=== PATIENT | male | born 2005 | race Caucasian/White ===

== ENCOUNTER 2025-07-29 03:54 | Emergency (ER) | payer OTHER, SELFPAY ==
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
--- OUTSIDE RECORDS SUMMARY | 2025-07-29 09:06 | XMS_ITS | Patient Health Record ---
Author Organization [facility] Address [address] [place] [address] Care Team Providers Care Senior Fund Accountant Name Role Phone Chantell ONEIL, Rhianna Primary Care Provider Alexis Vaughn Unavailable Reason For Referral No Information Medications Medication SIG (Take, Route, Frequency, Duration) Notes Start Date End Date Status SEROquel *Please review a nd pick correct strength-formulation from [employer] options. If intended option is not shown, discontinue and re-order from Quick Search* Active Problems Problem Type SNOMED Code ICD Code Onset Dates Problem Status W/U Status Risk Notes Problem Chronic ethmoidal sinusitis (82664676) Chronic ethmoidal sinusitis (473.2) Active confirmed Problem Chronic sphenoidal sinusitis (66812720) Chronic sphenoidal sinusitis (473.3) Active confirmed Problem Allergic rhinitis (61121899) Allergic rhinitis due to unspecified cause (477.9) Active confirmed Plan Of Treatment No Information Insurance Providers Payer Name Payer Address Payer Phone Subscriber Number Group Number Insured Name Patient Relationship to Insured Coverage Start Date Coverage End Date [employer] [address] [place] [address] [phone] [id number] Cristine Galeana Natural Child - Insured has Financial Responsibility [facility] [address] [place] [phone] [id number] Emmanuel Galeana Self - patient is the insured Medical (General) History Medical History History ICD Code Autistic
--- OUTSIDE RECORDS SUMMARY | 2025-07-29 09:06 | XMS_ITS | Encounter Summary ---
Author Organization [facility] Address [address] [place] [address] Phone Care Team Providers Care Family Psychologist Name Role Phone Rhianna Abdul MD Primary Care Provider Encounter Details Date Type Department Care Team (Late st Contact Info) Description 05/09/2018 Procedure Pass [facility] [address] [place] [address] Social History Tobacco Use Types Packs/Day Years Used Date Smoking Tobacco: Never Smokeless Tobacco: Never Sex and Gender Information Value Date Recorded Sex Assigned at Not on file Legal Sex Male 3:57 PM EDT Gender Identity Not on file Sexual Orientation Not on file documented as of this encounter Plan of Treatment Not on file documented as of this encounter Visit Diagnoses Not on filedocumented in this encounter Additional Health Concerns Assessment Noted Time PHQ-2 Depression Total Score: 0 05/09/20 18 2:54 PM EDT documented as of this encounter Care Teams Family Psychologist Relationship Specialty Start Date End Date Rhianna Abdul MD [address] [place] [address] PCP - General Pediatrics 04/04/18 documented as of this encounter Additional Source Comments The information contained in this document represents components of the legal health record. It is not the complete legal health record.[facility]
--- OUTSIDE RECORDS SUMMARY | 2025-07-29 09:06 | XMS_ITS | Clinical Summary ---
Author Organization [facility] Address [address] [place] [address] Care Team Providers Care Oracle Wms Consultant Name Role Phone Rhianna Abdul MD Primary Care Provider Allergies No known active allergies Medications * This document contains information received from the source organization and may not represent a complete record from that organization. ARIPiprazole (ABILIFY) 15 mg tablet Take 1 tablet (15 mg total) by mouth once a day. 14 tablet 1 5 Active cloNIDine (CATAPRES) 0.1 mg tablet Take 1 tablet (0.1 mg total) by mouth 3 times a day as needed (anxiety). 21 tablet 5 Active hydrOXYzine HCL (ATARAX) 50 mg tablet Take 1 tablet (50 mg total) by mouth 3 times a day as needed for anxiety. 28 tablet 5 Active lamoTRIgine (LaMICtal) 100 mg tablet Take 2 tablets (200 mg total) by mouth once a day AND 0.5 tablets (50 mg total) every night. Do all this for 28 days. 35 tablet 1 5 Active melatonin 3 mg tablet Take 1 tablet (3 mg total) by mouth nightly as needed for sleep. 14 tablet 5 Active sertraline (ZOLOFT) 100 mg tablet Take 2 tablets (200 mg total) by mouth once a day. 28 tablet 1 5 Active LORazepam (ATIVAN) 0.5 mg tablet Take 1 tablet (0.5 mg total) by mouth daily as needed (severe anxiety). 14 tablet 1 5 Active Additional Information Patient not taking.Reported on 02/12/2025 prazosin (MINIPRESS) 2 mg capsule SMARTSI Capsule(s) By Mouth Every Night Active spironolactone (ALDACTONE) 50 mg tablet Take 1 tablet (50 mg total) by mouth once a day. 90 tablet 1 5 Active Active Problems Problem Noted Date Diagnosed Date Moderate episode of recurrent major depressive d isorder 09/25/2024 Social anxiety disorder 09/25/2024 Anxiety 08/11/2024 Assessment & Plan (09/17/2024 2:34 PM EST): Excessive worrying: reports Domains - e verything, the future, what's going to happen Difficulty controlling worry: reports Restlessness, feeling keyed up or on edge: reports Easily fatigued: reports Difficulty concentrating: denies Irritability: reports Muscle tension: reports Sleep disturbance: reports (sleeping too much and trouble sleeping) 09/07: increase Abilify to 15 mg daily 09/17: Family mtg 09/20 Hypersexuality 05/02/2024 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 presentation is consistent with previously diagnosed pedophilic disorder and compulsive sexual behaviors. 08/13: re- started Provera 100 mg daily- for sexualized thoughts/behaviors. Assess for response/side effects plan to increase dose as tolerated- transition to depo- provera injection per pt. Request if tolerated 08/16: Provera dose increase to 200 mg daily as of 08/17 08/26: Provera dose increased to 300 mg daily- plan to transition to Depo-Provera injection per pt. Request if tolerated 09/02: Start Depo-Provera injection 400 mg IM weekly x 2-3 weeks then monthly as tolerated, dose can be increased up to 600 mg. 09/07: re-start oral Provera 100 mg daily until 09/11 then decrease dose to 50 mg x5 days then d/c and increase Abilify to 15 mg daily 09/09: Next dose Depo-Provera injection increased to 500 mg IM weekly on 09/10 09/11: Taper off Oral Provera, last dose of 25 mg on 09/16 Next Dose Depo-Provera injection 500 mg IM weekly due on 09/17 09/17: Received 3rd Depo-Provera injection 500 mg IM weekly today 09/17- next dose will be in 2 weeks on 10/01/24 Anxiety disorder, unspecified type 04/30/2024 Episodic mood disorder 11/05/2014 Akathisia 08/07/2014 Autistic disorder 08/01/2014 Anxiety disorder 08/01/2014 Difficulties In Speech 05/29/2009 Constipation 05/30/2006 Development disorder, mixed 05/30/2006 Acute mucoid otitis media 05/19/2006 Resolved Problems Problem Noted Date Diagnosed Date Resolved Date Recurrent major depressive d isorder, in remission 03/28/2024 09/25/2024 Assessment & Plan (09/17/2024 2:22 PM EST): The patient's history and presentation is consistent with decompensation of major depressive disorder recurrent severe. Symptoms are likely exacerbated by increased psychosocial stressors (loneliness, lack of day structure). Pt reports multiple neurovegetative symptoms. Presents as help seeking. Denies current plan or intent of SI. The patient will likely benefit from assessment of pharmacological and therapeutic interventions along with review of outpatient services, and engagement in milieu environment. -Patient currently presents as able to safety plan on the unit reporting desire to start medications to obtain stability and help with symptoms leading to admission 09/07: Increase Abilify to 15 mg daily 09/13: Increase Abilify to 20 mg daily 09/17: Decrease Abilify to 15 mg daily, Add Lamictal 50 mg at bedtime, and Ativan 0.5 mg daily PRN severe anxiety Assessment & Plan (04/02/2024 3:40 PM EDT): Mr. Emmanuel Galeana is a 19-year-old male with a non-significant past medical history and a past psychiatric history of autism spectrum disorder, anxiety, depression, and ADHD. He was admitted to the [facility] adult psychiatric unit on a conditional voluntary status (section 10 & 11) for worsening depression and suicidal thoughts with plan to cut his wrists. While hospitalized, Mr. Galeana initially endorsed depressed mood and suicidal thoughts. He was continued on his outpatient regimen of Lamictal and started on lexapro for mood and anxiety. He notes improvement in his mood and has been denying suicidal thoughts. He signed a 3-day notice expiring on 04/05. Plan (changes in bold): Psychiatric medications: ----Continue Lexapro 10 mg daily Labs/Consults: ----medical consult ordered on 03/29 due to elevated LFTs Disposition: ----Appreciate assistance with referrals and care coordination Tourette syndrome 08/01/2014 09/25/2024 Encounters Date Type Department Care Team Description 05/19/2025 myChart Message [facility] [address] [place] [address] Mychart, Generic Provider New Patient Appt 06/1005/02/2025 Telephone [facility] [address] [place] [address] Php Wordpress Developer: Sadi Hoffman MD 04/29/2025 Telephone [facility] [address] [place] [address] Php Wordpress Developer: Sadi Hoffman MD DEPO-PROVERA APPROVAL from Last 3 Months Immunizations Immunization Administration Dates Next Due Human Papillomavirus 9-Valent Vaccine 04/23/2019 ,11/19/2018 INFLUENZA, SPLIT VIRUS, TRIVALENT, PF 05/02/2024 (Deferred: Patient Refused) Influenza, Injectable, Quadr ivalent, Preservative Free 07/21/2020 Meningococcal Polysaccharide (Groups A, C, Y and W-135) Diphtheria Toxoid Conjugate Vaccine (MCV4P) 07/21/2020 Tetanus Toxoid, Reduced Diph theria Toxoid, and Acellular Pertussis Vaccine, Adsorbed 09/07/2021 Family History Medical History Relation Name Comments Other Cousin Schizophrenia Cousin Suicide Attempts Cousin No Known Problems Father Schizophrenia Father's Brother Anxiety disorder Mother Depression Mother Other Mother Family history of No pertinent family history No Known Problems Mother's Sister Relation Name Status Comments Cousin Father Alive Father's Brother Alive Mother Alive Mother's Sister Alive Social History Tobacco Use Types Packs/Day Years Used Date Smoking Tobacco: Never Passive Smoke Exposure: Never Smokeless Tobacco: Never Tobacco Cessation:Counseling Given: Not Answered Alcohol Use Standard Drinks/Week Comments Not Currently 0 (1 standard drink = 0.6 oz pur e alcohol) [facility] Utilities Answer Date Recorded In the past 12 months has th e electric, gas, oil, or water company threatened to shut off services in your home? No 09/25/2024 Hunger Vital Sign Answer Date Recorded Within the past 12 months, y ou worried that your food would run out before you got the money to buy more. Never true 09/25/19 25 Within the past 12 months, t he food you bought just didn't last and you didn't have money to get more. Never true 09/25/2024 Transportation Answer Date Recorded In the past 12 months, has l ack of reliable transportation kept you from medical appointments, meetings, work or from getting things needed for daily living? Yes 09/25/2024 Housing Answer Date Recorded Housing Risk Low 2 09/25/2024 Housing Risk Medium Not on file 09/25/2024 Housing Risk High Not on file 09/25/2024 What is your living situation today? [facility] 09/25/2024 Sex and Gender Information Value Date Recorded Sex Assigned at Male 03/01/2024 3:15 PM EDT Legal Sex Male 3:48 AM EDT Gender Identity Male 03/14/2025 11:51 AM EDT Sexual Orientation Bisexual 03/14/2025 11 :51 AM EDT Last Filed Vital Signs Vital Sign Reading Time Taken Comments Blood Pressure 104/64 03/14/2025 1:42 PM EDT Pulse 69 03/14/2025 1:42 PM EDT Temperature 36.7 C (98.1 F) 01/13/2025 4:36 PM EDT Respiratory Rate 18 01/14/2025 4:49 AM EDT Oxygen Saturation 99% 01/13/2025 4:36 PM EDT Inhaled Oxygen Concentration - - Weight 80.3 kg (177 lb 0.5 oz) 02/12/2025 8:13 A M EDT Height 193 cm (6' 4 ) 02/12/2025 8:13 AM EDT Body Mass Index 21.55 02/12/2025 8:13 AM EDT Plan of Treatment Upcoming Encounters Date Type Department Care Team (Late st Contact Info) Description 08/04/2025 3:30 PM EST Office Visit [facility] [address] [place] [address] Nitza Hill MD [address] [facility] [place] [address] Health Maintenance Due Date Last Done Comments HIV Screening 2003 Varicella Vaccines (1 of 2 - 13+ 2-dose series) 02/14/2016 HPV Vaccines (3 - Male 3-dose series) 07/16/2019 04/23/2019, 11/19/2018 Hepatitis B Vaccines (1 of 3 - 19+ 3-dose series) 2022 Alcohol/Substance Use Screening 07/31/2024 Depression Screening and Follow-Up 07/31/2024 Influenza Vaccine (#1) 2025 07/21/2020 COVID-19 Vaccine ( - season) 2025 Social Drivers of Health Annual Screening 09/25/2025 09/25/2024 Basic Metabolic Panel 01/13/2026 01/13/2025 , 08/10/2024, 05/04/2024, Additional history exists DTaP,Tdap,and Td Vaccines (2 - Td or Tdap) 09/07/2031 09/07/2021 Meningococcal Vaccine Completed 07/21/2020 Hepatitis C Screening Completed 03/30/2024 Pneumococcal Vaccine: Pediatric (0-5 Years) and At-Risk Patients (6-50 Years) Aged Out No longer eligible based on patient's age to complete this topic Procedures * Due to [place] law, this organization might not be sharing negative HIV tests. Procedure Name Priority Date/Time Associated Diagnosis Comments COMPREHENSIVE METABOLIC PANEL STAT 01/13/2025 5:25 PM EDT HEPATITIS PANEL, ACUTE STAT 1:35 PM EDT from Last 3 Months or Most Recently Relevant to Health Maintenance Results * Due to [place] law, this organization might not be sharing negative HIV tests. * (ABNORMAL) Comprehensive Metabolic Panel (01/13/2025 5:25 PM EDT) NA 137 136 - 145 mmol/L 01/13/2025 5:53 PM EDT [facility] K 3.7 3.5 - 5.1 mmol/L 01/13/2025 5:53 PM EDT [facility] Cl 104 98 - 109 mmol/L 01/13/2025 5:53 PM EDT [facility] CO2 17(L) 22 - 32 mmol/L 01/13/2025 5:53 PM EDT [facility] Anion Gap 20 >=0 01/13/2025 5:53 PM EDT [facility] Glucose 117(H) 60 - 99 mg/dL 01/13/2025 5:53 PM EDT [facility] Creatinine 0.85 0.50 - 1.12 mg/dL 01/13/2025 5:53 PM EDT [facility] Calcium 9.7 8.4 - 10.4 mg/dL 01/13/2025 5:53 PM EDT [facility] Total Protein 7.3 6.6 - 8.7 g/dL 01/13/2025 5:53 PM EDT [facility] Albumin 4.7 3.5 - 5.0 g/dL 01/13/2025 5:53 PM EDT [facility] Bilirubin, Total 0.5 0.2 - 1.2 mg/dL 01/13/2025 5:53 PM EDT [facility] Alkaline Phosphatase 61 30 - 200 U/L 01/13/2025 5:53 PM EDT [facility] AST 23 0 - 40 U/L 01/13/2025 5:53 PM EDT [facility] ALT 17 <=41 U/L 01/13/2025 5:53 PM EDT [facility] BUN 11 6 - 20 mg/dL 01/13/2025 5:53 PM EDT [facility] eGFR >90 >=60 mL/min/1. 73m2 01/13/2025 5:53 PM EDT [facility] Comment:The estimated glomer ular filtration rate (eGFR) is calculated using a new formula developed by the NKF-ASN task force to eliminate race-based correction factors. The new formula uses serum/plasma creatinine, age, and gender to determine eGFR. A value below 60mls/min might indicate kidney disease and will be flagged. For additional information, see Christine et al, Am J Kidney Dis. 2021;79(2):268- 288, A Unifying Approach for GFR estimation: Recommendations of the NKF-ASN Task Force on Reassessing the Inclusion of Race in Diagnosing Kidney Disease . Globulin, Total 2.6 2.1 - 4.2 g/dL 01/13/2025 5:53 PM EDT [facility] A/G Ratio 1.8 1.5 - 3.0 01/13/2025 5:53 PM EDT [facility] Blood Structure of peripheral vein / Unknown Venipuncture / Unknown 01/13/2025 5:25 PM EDT 01/13/2025 5:32 PM EDT us Rajesh Ramirez MD LAB BLOOD ORDERABLES Final Res ult [facility] [address] [place] [phone], * Hepatitis panel, acute (03/30/2024 1:35 PM EDT) Hepatitis A IgM Antibody Interpretation Nonreactive Nonreactive 04/01/2024 10:13 AM EDT [facility] Hepatitis B Core IgM Antibody Interpretation Nonreactive Nonreactive 04/01/2024 10:13 AM EDT [facility] Hepatitis B Surface Antigen Interpretation Non-Reactive Non-Reactive 04/01/2024 10:13 AM EDT [facility] Hepatitis C Antibody Interpretation Nonreactive Nonreactive 04/01/2024 10:13 AM EDT [facility] Blood Structure of peripheral vein / Unknown Venipuncture / Unknown 03/30/2024 1:35 PM EDT 03/30/2024 1:35 PM EDT us Adriana Tineo NP LAB BLOOD ORDERABLES Sandy sulema Result [facility] [address] [place] [address], [place] [phone] from Last 3 Months or Most Recently Relevant to Health Maintenance Insurance [facility] [employer] Advance Directives * Presumed Full Code (Latest Code Status on File) Date Activated Date Inactivated Comments 08/11/2024 3:04 AM 09/09/2024 5:15 PM * Full Code Date Activated Date Inactivated Comments 04/30/2024 4:46 PM 06/05/2024 4:45 PM * Full Code Date Activated Date Inactivated Comments 03/28/2024 10:27 AM 04/04/2024 4:15 PM Care Teams Oracle Wms Consultant Relationship Specialty Start Date End Date Rhianna Abdul MD [address] [place] [address] PCP - General 02/16/17
--- OUTSIDE RECORDS SUMMARY | 2025-07-29 09:06 | XMS_ITS | Encounter Summary ---
Author Organization [facility] Address [address] [place] [address] Phone Care Team Providers Care Account Development Associate Name Role Phone Rhianna Abdul MD Primary Care Provider Encounter Details Date Type Department Care Team (Late st Contact Info) Description 05/09/2018 Procedure Pass [facility] [address] [place] [address] Social History Tobacco Use Types Packs/Day Years [...] documented as of this encounter Care Teams Account Development Associate Relationship Specialty Start Date End Date Rhianna Abdul MD [address] [place] [address] PCP - General Pediatrics 04/04/18 documented as of this encounter Additional Source Comments The information contained in this document represents components of the legal health record. It is not the complete legal health record.[facility]
--- OUTSIDE RECORDS SUMMARY | 2025-07-29 09:06 | XMS_ITS | Clinical Summary ---
Author Organization [facility] Address [address] [facility] [address] [place] [phone] Phone Care Team Providers Care Manual Control Auger Press Operator Name Role Phone Rhianna Abdul MD Primary Care Provider [phone] Allergies Active Allergy Reactions Criticality Noted Date Comments Pollen Extracts 05/09/2018 Medications desmopressin (DDAVP) 0.1 MG tabletIndication s:3 tabs daily Take 0.1 mg by mouth daily. Indications : 3 tabs daily Active Social History Tobacco Use Types Packs/Day Years Used Date Smoking Tobacco: Never Smokeless Tobacco: Never Education Answer Date Recorded Are you interested in more education? Not on wayne e 11/25/2022 Are you concerned about learning? Not on file 11/25/2022 No 11/25/2022 No 11/25/2022 Digital Access Answer Date Recorded No 12/24/2022 No 12/24/2022 No 12/24/2022 Reliable internet access at home? Not on file 12/24/2022 Device with a working camera? Not on file Sex and Gender Information Value Date Recorded Sex Assigned at Not on file Legal Sex Male 3:57 PM EDT Gender Identity Not on file Sexual Orientation Not on file Last Filed Vital Signs Vital Sign Reading Time Taken Comments Blood Pressure 96/51 08/31/2018 12:53 PM EST Pulse 65 08/31/2018 12:53 PM EST Temperature - - Respiratory Rate - - Oxygen Saturation 100% 08/31/2018 12:53 PM EST Inhaled Oxygen Concentration - - Weight 59.1 kg (130 lb 6.4 oz) 08/31/2018 12:53 PM EST Height - - Body Mass Index - - Plan of Treatment Health Maintenance Due Date Last Done Comments Adult Td,Tdap Booster 2003 SMOKING Hx and SMOKELESS TOBACCO SCREENING 02/14/2016 MENINGOCOCCAL VACCINES (B) ( 1 of 2 - Standard) 2019 DEPRESSION SCREENING 05/09/2019 05/09/2018 HPV VACCINES (3 - Male 3-dos e series) 07/16/2019 04/23/2019, 11/19/2018 HEPATITIS C SCREENING 2021 HIV ONE-TIME SCREENING (18-6 5 YEARS) 2021 INFLUENZA VACCINE (#1) 2025 07/21/2020 COVID-19 VACCINE (1 - 2024-2 6 season) 2025 MENINGOCOCCAL VACCINES (ACWY) Completed 07/21/2020 HEPATITIS A VACCINES Aged Out No long er eligible based on patient's age to complete this topic HIB VACCINES Aged Out No longer eligi ble based on patient's age to complete this topic PNEUMOCOCCAL VACCINES (0-49 years) Aged Out No longer eligible b ased on patient's age to complete this topic Medical Devices Not on file Insurance [facility] TOTAL CHOICE INDEMNITY [employer] TOTAL CHOICE INDEMNITY [employer] TOTAL CHOICE INDEMNITY [employer] TOTAL CHOICE INDEMNITY [employer] TOTAL CHOICE INDEMNITY [employer] TOTAL CHOICE INDEMNITY [employer] TOTAL CHOICE INDEMNITY [employer] TOTAL CHOICE INDEMNITY [facility] TOTAL CHOICE INDEMNITY Care Teams Manual Control Auger Press Operator Relationship Specialty Start Date End Date Rhianna Abdul MD [address] [place] [phone] PCP - General Pediatrics 04/04/18 Additional Source Comments The information contained in this document represents components of the legal health record. It is not the complete legal health record.[facility]
--- OUTSIDE RECORDS SUMMARY | 2025-07-29 09:06 | XMS_ITS | Clinical Summary ---
Author Organization [facility] Address [address] [place] [address] Care Team Providers Care Clay Transporter Name Role Phone Rhianna Abdul Primary Care Provider [phone] Allergies No known active allergies Medications DESMOPRESSIN ACETATE (DDAVP) 0.01 % Solution desmopressin Take No date recorded No form recorded No frequency recorded No route recorded No set duration recorded No set duration amount recorded active No dosage strength recorded No dosage strength units of measure recorded Active Social History Tobacco Use Types Packs/Day Years Used Date Smoking Tobacco: Never Assessed Intimate Partner Violence Answer Date R ecorded Fear of Current or Ex-Partner Not on file Emotionally Abused Not on file 03/21/2023 Physically Abused Not on file 03/21/2023 Sexually Abused Not on file 03/21/2023 Feel Safe at Home Not on file 03/21/2023 Sex and Gender Information Value Date Recorded Sex Assigned at Not on file Legal Sex Male 10:40 PM EDT Gender Identity Not on file Sexual Orientation Not on file Last Filed Vital Signs Vital Sign Reading Time Taken Comments Blood Pressure - - Pulse 88 03/10/2010 7:06 PM EDT Temperature 36.7 C (98.1 F) 03/10/2010 7:06 PM EDT Respiratory Rate - - Oxygen Saturation - - Inhaled Oxygen Concentration - - Weight 24.9 kg (55 lb) 03/10/2010 7:06 PM EDT Height - - Body Mass Index - - Plan of Treatment Health Maintenance Due Date Last Done Comments Hepatitis C Screening 2003 HPV Vaccine (1 - Male 3-dose series) 2018 DTaP/Tdap/Td (1 - Tdap) 2021 Hep B (1 of 3 - 19+ 3-dose series) 2022 COVID-19 Vaccine (1 - 2024-2 6 season) 2025 Influenza (#1) 2025 Zoster (Shingrix) (1 of 2) 2053 Hep A Aged Out No longer eligi ble based on patient's age to complete this topic Hib Aged Out No longer eligi ble based on patient's age to complete this topic Meningococcal ACWY Aged Out No longer eligible based on patient's age to complete this topic Pneumococcal Aged Out No longer eligi ble based on patient's age to complete this topic Insurance [facility] Care Teams Clay Transporter Relationship Specialty Start Date End Date Rhianna Abdul [facility] [address] [place] [address] PCP - General Pediatrics 03/23/22
--- OUTSIDE RECORDS SUMMARY | 2025-07-29 09:07 | XMS_ITS | Encounter Summary ---
Author Organization [facility] Address [address] [place] [address] Care Team Providers Care Director Biologics Name Role Phone Rhianna Abdul MD Primary Care Provider [phone] Encounter Details Date Type Department Care Team (Late st Contact Info) Description 10/14/2024 Orders Only [facility] [address] [place] [id number] Sonam Reid [facility] Social History Tobacco Use Types Packs/Day Years Used Date Smoking Tobacco: Never Passive Smoke Exposure: Never Smokeless Tobacco: Never Alcohol Use Standard Drinks/Week Comments Not Currently 0 (1 standard drink = 0.6 oz pur e alcohol) [facility] Utilities Answer Date Recorded In the past [...] Orientation Bisexual 03/14/2025 11 :51 AM EDT documented as of this encounter Plan of Treatment Upcoming Encounters Date Type Department Care Team (Late st Contact Info) Description 08/04/2025 3:30 PM EST Office Visit [facility] [address] [place] [address] Nitza Hill MD [address] [place] [address] documented as of this encounter Visit Diagnoses Not on filedocumented in this encounter Care Teams Director Biologics Relationship Specialty Start Date End Date Rhianna Abdul MD [address] [place] [phone] PCP - General 02/16/17 documented as of this encounter
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
[2025-07-29 13:13] VITALS: BP 110/68; PULSE 100; RESP 16; TEMP 36.6; O2SAT 98
== END 2025-07-29 13:15 | disposition home or self-care (01) ==
PROVIDERS: Emergency Provider Emergency Medicine
DX: S02.2XXA Fracture of nasal bones, initial encounter for closed fracture (principal); S02.40DA Maxillary fracture, left side, initial encounter for closed fracture; S00.12XA Contusion of left eyelid and periocular area, initial encounter; S00.83XA Contusion of other part of head, initial encounter; Y04.2XXA Assault by strike against or bumped into by another person, initial encounter; Y93.9 Activity, unspecified; Y92.199 Unspecified place in other specified residential institution as the place of occurrence of the external cause; Y99.9 Unspecified external cause status
CPT/HCPCS: 70450; 70486; 99283; 99285

== ENCOUNTER → 2025-07-29 04:48 | Outpatient (BNV) | payer OTHER, SELFPAY | PROVIDERS: Emergency Provider Emergency Medicine; Visit Provider Radiology Diagnostic Radiology | DX: S02.40CA Maxillary fracture, right side, initial encounter for closed fracture (principal); S02.2XXA Fracture of nasal bones, initial encounter for closed fracture; M79.89 Other specified soft tissue disorders; Y04.8XXA Assault by other bodily force, initial encounter | CPT/HCPCS: 70450; 70486 ==